=== PATIENT | female | born 1980 | race Caucasian/White ===

== ENCOUNTER 2019-03-14 21:10 | Emergency (ER) | payer MEDICAID ==
[~2019-03-14] VITALS: Ht 165.1 cm; Wt 101.3 kg
[2019-03-14 21:12] VITALS: Ht 165.1 cm; Wt 101.3 kg
--- NOTE | 2019-03-14 22:55 | ERD ---
ER Documentation Chief Complaint Chief Complaint RT buttock abscess [id number]; 31wks preg no complications HPI 31-year-old female in her 31st week presents complaint of abscess on th e buttocks for the past 3 weeks. Note that her blood pressure was elevated in the first read but we rechecked and it was down. Patient denies have any history of frequency of hypertension before . Patient states that she was just at her doctor's office yesterday and her blood pressure was fine. Denies any treatments. Denies any fevers, chills, numbness, tingling. Denies allergies. Denies medical problems. ROS All systems reviewed and are negative except as per history of present illness. Medications Home Meds Active Scripts Clindamycin Hcl* (Clindamycin Hcl*) 300 Mg Capsule, 300 MG PO QID for 6 Days, CAP Prov:NICHOLAS QUEZADA 03/14/19 Cephalexin* (Keflex*) 500 Mg Capsule, 500 MG PO BID for 7 Days, CAP Prov:NICHOLAS QUEZADA 03/14/19 Allergies Allergies: Coded Allergies: No Known Allergy (Unverified , 03/14/19) PMhx/Soc History of Surgery: No Anesthesia Reaction: No Hx Neurological Disorder: No Hx Respiratory Disorders: No Hx Cardiac Disorders: No Hx Psychiatric Problems: No Hx Miscellaneous Medical Probl: No Hx Alcohol Use: No Hx Substance Use: No Hx Tobacco Use: No Smoking Status: Never smoker FmHx Family History: No diabetes, No coronary disease, No other Physical Exam Vitals Vital Signs Date Temp Pulse Resp B/P (MAP) Pulse Ox O2 O2 Flow FiO2 Time Delivery Rate 03/14/19 101 20 117/75 Room Air 22:58 (89) 03/14/19 98.8 104 20 162/77 97 21:12 (105) Physical Exam Const: No acute distress Head: Atraumatic Eyes: Normal Conjunctiva ENT: Normal External Ears, Nose and Mouth. Neck: Full range of motion. No meningismus. Resp: Clear to auscultation bilaterally Cardio: Regular rate and rhythm, no murmurs Abd: Soft, non tender, non distended. Normal bowel sounds Skin: Approximately 5 cm erythematous mass noted on the left buttocks. No perianal masses noted. Mass is indurated and only mildly fluctuant. There is no lymphatic streaking noted. Back: No midline or flank tenderness Ext: No cyanosis, or edema Neur: Awake and alert Psych: Normal Mood and Affect Results 24 hrs Laboratory Tests Test 03/14/19 23:00 Urine Color YELLOW Urine Clarity SLIGHTLY CLOUDY Urine pH 6.0 Urine Specific [place] 1.016 Urine Ketones 1+ mg/dL Urine Nitrite NEGATIVE mg/dL Urine Bilirubin NEGATIVE mg/dL Urine Urobilinogen 2+ mg/dL Urine Leukocyte Esterase 2+ Noé/ul Urine Microscopic RBC 3 /HPF Urine Microscopic WBC 6 /HPF Urine Squamous Epithelial Cells FEW /HPF Urine Bacteria FEW /HPF Urine Hemoglobin NEGATIVE mg/dL Urine Glucose 1+ mg/dL Urine Total Protein NEGATIVE mg/dl Current Medications Medications Dose Sig/Manjula Start Time Status Last (Trade) Ordered Route PRN Stop Time Admin Dose Reason Admin Lidocaine 1 applic ONCE ONCE 03/14/19 DC 03/14/19 (Lmx 4% Plus) TOP 23:00 22:43 03/14/19 23:01 Lidocaine 20 ml ONCE ONCE 03/14/19 DC (Xylocaine SC 23:00 1% (Mdv) 20 03/14/19 23:01 ml) Clindamycin 600 mg ONCE ONCE 03/15/19 Phosphate IM 00:30 (Cleocin) 03/15/19 00:31 Procedures/MDM MDM: Skin was cleaned with Betadine solution and in addition to LMX cream patient was given lidocaine for anesthesia. Incision was made in the abscess but there is very little drainage. Patient tolerated procedure without complications. Incision was dressed. Since there was no drainage there was no need for packing. Patient was started on 600 mg IM clindamycin and discharged with Rx for clindamycin for the abscess with cellulitis due to her not been able to take Bactrim. In addition patient was discharged with Rx for Keflex because of her UTI. Patient's vitals were normal and I have very low suspicion for se psis. In addition I have low suspicion for pyelonephritis, acute space infection, lymphangitis, or any other emergent condition. Patient advised to follow-up in 48 hours for wound check. Patient discharged with strict ER precautions. Patient advised to follow up with PMD. All questions answered at discharge. Departure Diagnosis: Primary Impression: Acute abscess Additional Impression: UTI (urinary tract infection) during Condition: NICHOLAS Sampson March 14, 2019 22:55
[2019-03-14 22:58] VITALS: RESP 20
[2019-03-14] MEDS ORDERED: LIDOCAINE 4% CR TOP ONE (23:00)
[2019-03-14] MEDS ORDERED: LIDOCAINE 1% (MDV) 20 ML INJ SC ONE (23:00)
[2019-03-14] MEDS ORDERED: CLIN300C10 PO (23:58)
[2019-03-14] MEDS ORDERED: CEPH-443 PO (23:58)
[2019-03-15] MEDS ORDERED: CLINDAMYCIN 600 MG INJ IM ONE (00:30)
[2019-03-15] MEDS ORDERED: CLINDAMYCIN 300 MG INJ IM ONE (01:11)
[2019-03-15 01:13] VITALS: BP 116/60; PULSE 66
== END 2019-03-15 01:14 | disposition home or self-care (01) ==
LOC: FTE 21:10
DX: L02.31 Cutaneous abscess of buttock (principal); N39.0 Urinary tract infection, site not specified
CPT/HCPCS: 10060; 81001; Z7610

== ENCOUNTER 2019-03-17 18:01 | Emergency (ER) | payer MEDICAID ==
[~2019-03-17] VITALS: Ht 162.6 cm; Wt 102.0 kg
[~2019-03-17 18:01] MED LIST: CEPH-443 PO; CLIN300C10 PO
[2019-03-17 18:04] VITALS: PULSE 88; Ht 162.6 cm; Wt 102.0 kg
[2019-03-17] MEDS ORDERED: LIDOCAINE 1% (MPF) 5 ML VIAL INFIL ONE (19:30)
--- NOTE | 2019-03-17 21:33 | ERD ---
ER Documentation Chief Complaint Chief Complaint FOR RECHECK OF ABCESS ON RT BUTTOCK , 31 WEEKS PREG HPI 38-year-old female currently 31 weeks presents for recheck of her right buttock abscess had incision and drainage here in the ER 3 days ago. She is currently taking antibiotics. She denies any fevers or chills. She states that she feels that the wound is still draining a little bit. She states that the pain is improving. Otherwise no other modifying factors noted. ROS All systems reviewed and are negative except as per history of present illness. Medications Home Meds Active Scripts Clindamycin Hcl* (Clindamycin Hcl*) 300 Mg Capsule, 300 MG PO QID for 6 Days, CAP Prov:NICHOLAS QUEZADA 03/14/19 Cephalexin* (Keflex*) 500 Mg Capsule, 500 MG PO BID for 7 Days, CAP Prov:NICHOLAS QUEZADA 03/14/19 Allergies Allergies: Coded Allergies: No Known Allergy (Unverified , 03/14/19) PMhx/Soc History of Surgery: No Anesthesia Reaction: No Hx Neurological Disorder: No Hx Respiratory Disorders: No Hx Cardiac Disorders: No Hx Psychiatric Problems: No Hx Miscellaneous Medical Probl: No Hx Alcohol Use: No Hx Substance Use: No Hx Tobacco Use: No Smoking Status: Never smoker FmHx Family History: No coronary disease Physical Exam Vitals Vital Signs Date Temp Pulse Resp B/P (MAP) Pulse Ox O2 O2 Flow FiO2 Time Delivery Rate 03/17/19 98.2 88 18 127/68 99 18:04 (87) Physical Exam Const: No acute distress Resp: Clear to auscultation bilaterally Cardio: Regular rate and rhythm, no murmurs Abd: Soft, non tender, non distended. Normal bowel sounds Skin: Right buttock abscess incision and drainage area clean dry and intact, there is still some pus drainage from the site which was expressed. Back: No midline or flank tenderness Ext: No cyanosis, or edema Neur: Awake and alert Psych: Normal Mood and Affect Results 24 hrs Current Medications Medications Dose Sig/Manjula Start Time Status Last (Trade) Ordered Route PRN Stop Time Admin Dose Reason Admin Lidocaine 5 ml ONCE ONCE 03/17/19 DC (Xylocaine INFIL 19:30 1% (Mpf)) 03/17/19 19:31 Procedures/MDM Medical Decision Making: Patient presents for recheck of incision and drainage was done for her right buttock abscess 3 days ago. There is some drainage noted over the area on examination. The pus was drained and the area was irrigated with copious amounts of normal saline. Patient advised regarding sitz bath to keep the wound open to encourage continued drainage. Advised to complete her course of antibiotics. Patient advised to follow up with PCP in 1-2 days. Patient advised to return to ED for new or worsening symptoms. Patient stable on discharge from the ED. Disclaimer: Inadvertent spelling and grammatical errors are likely due to EHR/dictation software use and do not reflect on the overall quality of patient care. Also, please note that the electronic time recorded on this note does not necessarily reflect the actual time of the patient encounter. Departure Diagnosis: Primary Impression: Wound check, abscess Condition: Fair Patient Instructions: Wound Care Referrals: [facility] YOU HAVE RECEIVED A MEDICAL SCREENING EXAM AND THE RESULTS INDICATE THAT YOU DO NOT HAVE A CONDITION THAT REQUIRES URGENT TREATMENT IN THE EMERGENCY DEPARTMENT. FURTHER EVALUATION AND TREATMENT OF YOUR CONDITION CAN WAIT UNTIL YOU ARE SEEN IN YOUR DOCTORS OFFICE WITHIN THE NEXT 1-2 DAYS. IT IS YOUR RESPONSIBILITY TO MAKE AN APPOINTMENT FOR FOLOW-UP CARE. IF YOU HAVE A PRIMARY DOCTOR --you should call your primary doctor and schedule an appointment IF YOU DO NOT HAVE A PRIMARY DOCTOR YOU CAN CALL OUR PHYSICIAN REFERRAL HOTLINE AT IF YOU CAN NOT AFFORD TO SEE A PHYSICIAN YOU CAN CHOSE FROM THE FOLLOWING [facility] [address] [facility]. [facility] [address] [facility] [facility] [address] [facility] [facility] [address] [facility]. [facility] [address] [facility]. [facility]. [address] Additional Instructions: Llame al doctor MAANA y angela luz maria MILA PARA DENTRO DE 1-2 PAINTER.Dgale a la secretaria que nosotros le instruimos hacer esta mila.Avise o llame si [place] condicin se empeora antes de la mila. Regresa aqui si peor o no mejor. DAHIANA GALVAN DO March 17, 2019 21:33
[2019-03-17 21:40] VITALS: BP 122/62; RESP 16
== END 2019-03-17 21:41 | disposition home or self-care (01) ==
LOC: FTE 18:01
DX: O99.713 Diseases of the skin and subcutaneous tissue complicating pregnancy, third trimester (principal); L02.31 Cutaneous abscess of buttock; Z3A.31 31 weeks gestation of pregnancy; Z48.01 Encounter for change or removal of surgical wound dressing
CPT/HCPCS: Z7502; Z7610; 99282

== ENCOUNTER 2019-04-02 12:14 | Outpatient (CLI) | payer MEDICAID ==
[~2019-04-02] VITALS: Ht 165.1 cm; Wt 103.5 kg
[2019-04-02 12:34] VITALS: Ht 165.1 cm; Wt 103.5 kg
[2019-04-02] MEDS ORDERED: NPH,100I5 SQ ×2 (12:34)
[2019-04-02] MEDS ORDERED: SS SC ×2 (12:34)
[2019-04-02] MEDS ORDERED: LEVO50TA7 PO (12:34)
[2019-04-02 12:35] VITALS: BP 137/76; PULSE 84; RESP 18
--- NOTE | 2019-04-02 14:49 | PN ---
Triage Information Date/Time Reason for visit: NST BPP for Hypothyroididm and Dm Weeks of Gestation 34+ /Para n/a Diabetes: gestational Diabetes management: diet controlled Hypertention: none Objective Vital Signs Date Temp Pulse Resp B/P (MAP) Pulse Ox O2 O2 Flow FiO2 Time Delivery Rate 04/02/19 97.9 84 18 137/76 Room Air 12:35 (96) Heart Rate: 140's Contractions: None Disposition: Discharge Assessment/Plan Bpp 08/01 Precautions discussed Questions answered Follow up with provider AMAYA DOWLING M.D. Apr 02, 2019 14:49
--- NOTE | 2019-04-02 15:29 | TRIAGE ---
OB Triage Datetime Report Generated by CPN: 04/02/2019 15:29 Datetime: 04/02/2019 14:42 Stage of : OB Triage Datetime: 04/02/2019 14:31 Stage of : OB Triage Datetime: 04/02/2019 14:02 Labor Evaluation Frequency: 0 Monitor Mode: External Pattern: Normal: <= 5 Contractions in 10 Minutes Resting Tone [place]: Relaxed Heart Rate FHR Baseline Rate: 135 Monitor Mode: External US Variability: Moderate 6-25 bpm Accelerations: 10X10 Decelerations: None Category: Category I Pain Assessment Pain Scale: 0 Pain Presence: None/Denies Pain Type: N/A Pain Goal: 3 Pain Relief Measures: Comfort Measures Datetime: 04/02/2019 12:54 Labor Evaluation Frequency: X1 Monitor Mode: External Duration (sec)2399: 60 Quality: Mild Pattern: Normal: <= 5 Contractions in 10 Minutes Resting Tone [place]: Relaxed Contraction Comments: DENIES FEELING Heart Rate FHR Baseline Rate: 135 Monitor Mode: External US Variability: Moderate 6-25 bpm Accelerations: 10X10 Decelerations: None Category: Category I Pain Assessment Pain Scale: 0 Pain Presence: None/Denies Pain Type: N/A Pain Goal: 3 Pain Relief Measures: Comfort Measures Datetime: 04/02/2019 12:25 Assessment Type: Triage Maternal Assessment Level of Consciousness: Keenly Alert, Responsive DTR's/Clonus: DTRs 2+; No Clonus Headache: Denies Blurred Vision: No Respiratory Effort: Unlabored; Regular Rhythm; Equal Expansion Breath Sounds, Left: Clear and Equal Breath Sounds, Right: Clear and Equal Nausea/Vomiting: Denies RUQ Epigastric Pain: Denies Lower Extremities Edema: None Degree: None Upper Extremities Edema: None Degree: None Facial Edema: None Fall Risk Assessment History of Falling: (0) No Secondary Diagnosis: (0) No Ambulatory Aid: (0) Bedrest/Nurse Assist IV Therapy: (0) No Gait: (0) Normal/Bedrest/Immobile Mental Status: (0) Oriented to Own Ability Fall Score: 0 Fall Risk Score Definition: No Risk: No action required Datetime: 04/02/2019 12:21 Time of Arrival: 04/02/2019 12:10 EGA: 34.5 Arrived By: Ambulatory Arrived From: Office Chief Complaint: pt. sent from CLINIC FOR NST/BPP FOR DM AND HYPOTHYROID Movement: Present Contractions: Denies/Absent Rupture of Membranes: Denies Vaginal Bleeding: None Patient Complaints: None Additional Patient Complaints: PT. STATES FBS 94MG/DL THIS AM Time Provider Notified: 04/02/2019 14:30 Provider Notified: HADADIAN Initial Plan: NST/BPP Datetime: 04/02/2019 12:18 Monitor Mode: External Monitor Mode: External US
== END 2019-04-02 15:10 | disposition home or self-care (01) ==
LOC: OBT 12:14 → L-D 12:14 → OBT 15:10
PROVIDERS: ATTEND Obstetrics & Gynecology
DX: O36.8330 Maternal care for abnormalities of the fetal heart rate or rhythm, third trimester, not applicable or unspecified (principal); O99.283 Endocrine, nutritional and metabolic diseases complicating pregnancy, third trimester; E03.9 Hypothyroidism, unspecified; O24.419 Gestational diabetes mellitus in pregnancy, unspecified control; O09.513 Supervision of elderly primigravida, third trimester; Z3A.34 34 weeks gestation of pregnancy
CPT/HCPCS: 76818; Z7500; G0463

== ENCOUNTER 2019-04-16 16:04 | Inpatient (IN) | payer MEDICAID ==
[~2019-04-16] VITALS: Ht 165.1 cm; Wt 107.8 kg
[~2019-04-16 16:04] MED LIST changes: -CEPH-443 PO; -CLIN300C10 PO; +LEVO50TA7 PO; +NPH,100I5 SQ; +SS SC
[2019-04-16 16:59] VITALS: Ht 165.1 cm; Wt 107.8 kg
[2019-04-16 17:00] VITALS: BP 137/76; PULSE 88; RESP 18
--- NOTE | 2019-04-16 21:41 | HP ---
Date/Time of Note Date/Time of Note DATE: 04/16/19 TIME: 21:36 OB - History Hx of Present Chief Complaint: elevated BP Estimated Due Date: May 09, 2019 : 5 Para: 4 Spontaneous : 0 Therapeutic : 0 Care: Good Care Ultrasounds: Normal mid trimester US Obstetrical Complications: None Medical Complications: Other (Type II DM, hypothyroidism) Past Family/Social History * Past Medical, Surgical, Family and Obstetric Histories reviewed from chart. OB Admission Exam Vital Signs Vital Signs Vital Signs Date Temp Pulse Resp B/P (MAP) Pulse Ox O2 O2 Flow FiO2 Time Delivery Rate 04/16/19 98.2 88 18 137/76 17:00 (96) Physical Exam HEENT: WNL Heart: Rhythm Normal Lungs: Clear, Equal Abdomen: WNL Extremities: Normal Reflexes: Normal Cervical Dilatation: None Effacement: 50% Station: -2 Membranes: Intact Heart Rate: 120's Accelerations: Accelerations Present Decelerations: No Decelerations Varibility: Moderate Last 72 hours Lab Results CBC & BMP 04/16/19 16:25 Liver Function Test 04/16/19 16:25 Alanine Aminotransferase (ALT/SGPT) 9 L Albumin 3.3 Alkaline Phosphatase 104 Aspartate Amino Transf (AST/SGOT) 17 Direct Bilirubin 0.00 Total Protein 7.1 Hemoglobin A1C Test 04/16/19 16:25 Hemoglobin A1c 7.1 H OB Assessment/Plan Reason for admission: other Other Assessment: R/O preeclampsia Plan: Other Other plan: Admit Monitor BP 24 hour urine collection ANGELIKA JACKSON MD Apr 16, 2019 21:41
[2019-04-16] MEDS ORDERED: ACETAMINOPHEN 325 MG TAB PO PRN (22:30)
[2019-04-16] MEDS ORDERED: ONDANSETRON 4 MG INJ IV PRN (22:30)
[2019-04-16] MEDS ORDERED: NACL 0.9% 3 ML SYG IV SCH (22:30)
--- NOTE | 2019-04-16 23:34 | TRIAGE ---
OB Triage Datetime Report Generated by CPN: 04/16/2019 23:33 Datetime: 04/16/2019 22:25 Labor Evaluation Frequency: NONE Monitor Mode: External Resting Tone [place]: Relaxed Heart Rate FHR Baseline Rate: 140 Monitor Mode: External US Variability: Moderate 6-25 bpm Accelerations: 15X15 Decelerations: None Category: Category I Datetime: 04/16/2019 22:00 Labor Evaluation Frequency: NONE Monitor Mode: External Resting Tone [place]: Relaxed Heart Rate FHR Baseline Rate: 145 Monitor Mode: External US Variability: Moderate 6-25 bpm Accelerations: 15X15 Decelerations: None Category: Category I Datetime: 04/16/2019 21:28 Vaginal Exam Dilatation (cms): 0.0 Effacement (%): 0 Station: -3 Exam By: Dr. Delshad Datetime: 04/16/2019 21:00 Labor Evaluation Frequency: x4 Monitor Mode: External Duration (sec)2399: 50-90 Quality: Mild Pattern: Normal: <= 5 Contractions in 10 Minutes Resting Tone [place]: Relaxed Heart Rate FHR Baseline Rate: 150 Monitor Mode: External US Variability: Moderate 6-25 bpm Accelerations: Prolonged Decelerations: None Category: Category I Datetime: 04/16/2019 20:32 Pain Assessment Pain Scale: 4 Pain Presence: Intermittent Pain Type: Cramping Pain Location: Abdomen Datetime: 04/16/2019 20:00 Labor Evaluation Frequency: 4-9 Monitor Mode: External Duration (sec)2399: 50-150 Quality: Mild Pattern: Normal: <= 5 Contractions in 10 Minutes Resting Tone [place]: Relaxed Heart Rate FHR Baseline Rate: 140 Monitor Mode: External US Variability: Moderate 6-25 bpm Accelerations: 15X15 Decelerations: None Category: Category I Datetime: 04/16/2019 17:50 Labor Evaluation Frequency: 7-8 Monitor Mode: External Duration (sec)2399: 40-60 Pattern: Normal: <= 5 Contractions in 10 Minutes Resting Tone [place]: Relaxed Heart Rate FHR Baseline Rate: 135 Monitor Mode: External US Variability: Moderate 6-25 bpm Accelerations: 10X10 Decelerations: None Category: Category I Pain Assessment Pain Scale: 0 Pain Presence: None/Denies Pain Type: N/A Pain Goal: 3 Pain Relief Measures: Comfort Measures Datetime: 04/16/2019 17:15 Stage of : OB Triage Datetime: 04/16/2019 16:54 Stage of : OB Triage Assessment Type: Triage Maternal Assessment Level of Consciousness: Keenly Alert, Responsive DTR's/Clonus: DTRs 2+; No Clonus Headache: Denies Blurred Vision: No Respiratory Effort: Unlabored; Regular Rhythm; Equal Expansion Breath Sounds, Left: Clear and Equal Breath Sounds, Right: Clear and Equal Nausea/Vomiting: Denies RUQ Epigastric Pain: Denies Facial Edema: None Temperature Route: Axillary Fall Risk Assessment History of Falling: (0) No Secondary Diagnosis: (0) No Ambulatory Aid: (0) Bedrest/Nurse Assist IV Therapy: (0) No Gait: (0) Normal/Bedrest/Immobile Mental Status: (0) Oriented to Own Ability Fall Score: 0 Fall Risk Score Definition: No Risk: No action required Labor Evaluation Frequency: X1 Monitor Mode: External Duration (sec)2399: 50 Quality: Mild Pattern: Normal: <= 5 Contractions in 10 Minutes Resting Tone [place]: Relaxed Heart Rate FHR Baseline Rate: 145 Monitor Mode: External US Variability: Moderate 6-25 bpm Decelerations: None Pain Assessment Pain Scale: 0 Pain Presence: None/Denies Pain Type: N/A Pain Goal: 3 Pain Relief Measures: Comfort Measures Datetime: 04/16/2019 16:52 Time of Arrival: 04/16/2019 15:52 EGA: 36.5 Arrived By: Ambulatory Arrived From: Office Chief Complaint: REFERRED FROM DR OFFICE FOR POSS PIH, DENIES LEAKING OR BLEEDING, HAS PERINEAL OK ESSURE CONSTANTLY Movement: Present Contractions: Denies/Absent Rupture of Membranes: Denies Vaginal Bleeding: None Vaginal Discharge: Denies Recent Sexual Intercouse: Yes Abdominal Trauma: Not Applicable Patient Complaints: Cramping Time Provider Notified: 04/16/2019 17:15 Provider Notified: Dr. Rodriguez Initial Plan: MONITOR, BPP, CBC, CMP, URIC ACID, HBA1C, FREE T4, TSH Datetime: 04/12/2019 11:31 Vaginal Bleeding: None Vaginal Discharge: Denies Recent Sexual Intercouse: Denies Datetime: 04/02/2019 12:25 Fall Score: 0 Fall Risk Score Definition: No Risk: No action required Datetime: 04/02/2019 12:21 EGA: 34.5
[2019-04-17] MEDS ORDERED: GLUCOSE GEL 15 GRAM TUBE BUCCAL PRN (01:00)
[2019-04-17] MEDS ORDERED: DEXTROSE 50% 50 ML SYRINGE IV PRN ×2 (01:00)
[2019-04-17] MEDS ORDERED: GLUCOSE GEL 15 GRAM TUBE PO PRN ×2 (01:00)
[2019-04-17] MEDS ORDERED: GLUCAGON 1 MG INJ IM PRN (01:00)
[2019-04-17] MEDS: NPH, HUMAN INSULIN ISOPHANE 3ML VIAL SC SCH ×2 (01:31→21:00)
[2019-04-17] MEDS: metFORMIN 500 MG TAB PO SCH ×2 (01:33→21:00)
[2019-04-17] MEDS ORDERED: OXYTOCIN 30 UNITS/LR 500 ML BAG IV ONE (07:00)
[2019-04-17] MEDS ORDERED: LEVOTHYROXINE 50 MCG TAB PO SCH (07:00)
[2019-04-17] MEDS: ACCU-CHEK XX SCH ×4 (07:59→19:35)
[2019-04-17] MEDS ORDERED: NPH, HUMAN INSULIN ISOPHANE 3ML VIAL SC SCH (08:05)
[2019-04-17] MEDS ORDERED: INSULIN ASPART [NOVOLOG] 3 ML PEN SC SCH ×2 (08:05→18:05)
[2019-04-17] MEDS ORDERED: PRENATAL VITAMIN PO SCH (09:00)
[2019-04-17] MEDS: DOCUSATE SODIUM 100 MG CAP PO SCH ×2 (09:53→21:00)
[2019-04-17] MEDS ORDERED: INSULIN LISPRO 100 UNIT/ML VIAL SC SCH (11:50)
[2019-04-17] MEDS: LACTATED RINGER'S 1,000 ML IV SCH ×2 (12:18→20:06)
[2019-04-17] MEDS ORDERED: OXYTOCIN 30 UNITS/LR 500 ML IV PRN (12:30)
[2019-04-17] MEDS ORDERED: CARBOPROST 250 MCG INJ IM PRN (12:30)
[2019-04-17] MEDS ORDERED: MISOPROSTOL 200 MCG TAB PR PRN (12:30)
[2019-04-17] MEDS ORDERED: OXYTOCIN 30 UNITS/LR 500 ML IV SCH (12:30)
[2019-04-17] MEDS ORDERED: CEFAZOLIN 2 GM/50 ML (PMX) 50 ML IVPB SCH (12:30)
[2019-04-17] MEDS ORDERED: METHYLERGONOVINE 0.2 MG INJ IM PRN (12:30)
--- NOTE | 2019-04-17 14:34 | PN ---
Date/Time of Note Date/Time of Note DATE: 04/17/19 TIME: 14:19 OB Subjective Subjective Subjective Patient seen and examined. She states good movement. She is complaining of pain on mid and right upper abdomen. She denies nausea, vomiting, shortness of breath, chest pain, headache, visual changes, vaginal bleeding or LOF. OB Objective Objective Objective General: Patient appears well, alert and oriented, NAD, appropriate mood and affect ABD: gravid, soft, non-tender. Back: No CVA tenderness (B/L) LE: Severe edema. No clubbing, cyanosis, edema, thigh or calf tenderness bilaterally FHT: 135 bpm , moderate variability with acceleration, no deceleration-category I Contractions:None OB Assessment/Plan Other plan: 38 year-old G 5 para 3-1-0-3 with gestational hypertension, pre-gestational diabetes on insulin, hypothyroidism, history of demise at 26 weeks, previous delivery with one at 26 weeks admitted since last night for elevated blood pressure. She is complaining of mid and right upper abdominal pain. She gained 10 pounds in 1 week. Induction of labor versus repeat delivery discussed in detail with patient. She would like to have a repeat delivery and bilateral tubal ligation. FHR: Reassuring. No sign of metabolic acidosis- Category I. Continuous EFM, toco. The risk of delivery including but not limited to bleeding, infection, injury to other organs (bowel, bladder, ureter, vessels, nerves), injury to fetus, blood transfusion, blood transfusion related infection, risk of anesthesia, adhesion, needs for future , removal of uterus or any other indicated surgery, surgical sterilization, increased risk of ectopic if failure of procedure occurs discussed with the patient and her family. She expressed understanding. All of her questions were answered. She signed the informed consent. PHYSICIAN'S VERIFICATION OF INFORMED CONSENT The patient was counseled regarding the procedure, its indications, risks, potential complications and alternatives and any questions were answered. Consent was obtained. PLANNED PROCEDURE/TREATMENT: delivery with possible using vacuum/forceps, bilateral tubal ligation and any other indicated surgery PHYSICIAN'S VERIFICATION OF INFORMED CONSENT FOR BLOOD TRANSFUSION: There is a reasonable possibility that blood transfusion will be necessary as a result of the patient's procedure. I have discussed the following with the patient/patient's legal inside technical sales representative: An explanation of the benefits and risks of the transfusion of blood or blood products and the possible alternatives. All questions have been answered to the patient's satisfaction. INFORMED CONSENT:The patient has been informed of: The nature of the proposed care, treatment, services, medications, interventions or procedures. Potential benefits, risks or side effects, including potential problems related to recuperation. The likelihood of achieving care treatment and service goals. Reasonable alternatives to the proposed care, treatment and service. The relevant risks, benefits and side effects related to alternatives, includ ing the possible results of not receiving care, treatment and services. When indicated, any limitations on the confidentiality of information learned from or about the patient. If appropriate, the risks, benefits and alternatives of the drugs to be used for sedation/analgesia including moderate sedation. If appropriate, patient has been provided information on the risks, benefits and alternatives to the transfusion of blood and/or blood products. If appropriate, patient has been provided information regarding the [place] Blood Act. LAUREN RANDOLPH Apr 17, 2019 14:34
[2019-04-17] MEDS ORDERED: PHENYLephrine (100 MCG/ML) 10ML SYG ONE (19:36)
[2019-04-17] MEDS ORDERED: morphine SULFATE/PF (10 MG/10 ML) INJ ONE (19:36)
[2019-04-17] MEDS ORDERED: OXYTOCIN 10 UNIT INJ ONE (19:36)
--- NOTE | 2019-04-17 19:40 | PREAC ---
Date/Time of Note Date/Time of Note DATE: 04/17/19 TIME: 19:37 Anesthesia Eval and Record Evaluation Time Pre-Procedure Interview DATE: 04/17/19 TIME: 19:37 Age 38 Sex female NPO: 8 hrs Preoperative diagnosis Repeat Planned procedure Past Medical History Past Medical History: Includes Cardio: HTN Endo: Diabetes, Hypothyroid GI: Obesity Heme: Anemia : : (5), Para: (4), Gestational age: (36) Surgery & Anesthesia Issues No known issue Meds Anticoagulation: No Beta Krunal within 24 hr: No Reason Beta Krunal not given: Pt. not on B-Krunal Reported Medications Levothyroxine Sodium* (Levothyroxine Sodium*) 50 Mcg Tablet, 50 MCG PO BEFORE BREAKFAST, #30 TAB 04/02/19 Insulin Human Regular (Novolin-R U-100) 100 Unit/Ml Soln, 10 UNITS SC AC BREAKFAST, EA 04/02/19 Insulin Human Regular (Novolin-R U-100) 100 Unit/Ml Soln, 6 UNITS SC AC DINNER, EA 04/02/19 NPH, Human Insulin Isophane (Humulin N Kwikpen) 100 Unit/1 Ml Insuln.pen, 14 UNIT SQ QHS, EA 04/02/19 NPH, Human Insulin Isophane (Humulin N Kwikpen) 100 Unit/1 Ml Insuln.pen, 15 UNIT SQ AC BREAKFAST, EA 04/02/19 Current Medications IV Flush (NS 3 ml) 3 ml PER PROTOCOL IV ; Start 04/16/19 at 22:30 Prenat Multivit/ [place]/Iron/Folic Ac () 1 tab DAILY PO Last administered on 04/17/19at 09:53; Admin Dose 1 TAB; Start 04/17/19 at 09:00 Docusate Sodium (Colace) 100 mg BID PO Last administered on 04/17/19at 09:53; Admin Dose 100 MG; Start 04/17/19 at 09:00 Acetaminophen (Tylenol Tab) 650 mg Q4H PRN PO .PAIN OR TEMP; Start 04/16/19 at 22:30 Ondansetron HCl (Zofran Inj) 4 mg Q6H PRN IV NAUSEA/VOMITING; Start 04/16/19 at 22:30 Insulin Aspart (Novolog Insulin Pen) 10 unit WITH BREAKFAST SC Last administered on 04/17/19at 09:52; Admin Dose 10 UNIT; Start 04/17/19 at 08:05 Insulin Human NPH (Humulin N) 15 unit WITH BREAKFAST SC Last administered on 04/17/19at 09:52; Admin Dose 15 UNIT; Start 04/17/19 at 08:05 Metformin HCl (Glucophage) 1,000 mg HS PO Last administered on 04/17/19at 01:33; Admin Dose 1,000 MG; Start 04/17/19 at 01:00 Insulin Human NPH (Humulin N) 14 unit HS SC Last administered on 04/17/19at 01:31; Admin Dose 14 UNIT; Start 04/17/19 at 01:00 Levothyroxine Sodium (Synthroid) 50 mcg BEFORE BREAKFAST PO Last administered on 04/17/19at 06:23; Admin Dose 50 MCG; Start 04/17/19 at 07:00 Metformin HCl (Glucophage) 1,000 mg WITH BREAKFAST PO ; Start 04/18/19 at 07:35 Insulin Aspart (Novolog Insulin Pen) 6 unit WITH DINNER SC ; Start 04/17/19 at 18:05 Miscellaneous Information 1 ea NOTE XX ; Start 04/17/19 at 01:00 Glucose (Glutose) 15 gm Q15M PRN PO DECREASED GLUCOSE; Start 04/17/19 at 01:00 Glucose (Glutose) 22.5 gm Q15M PRN PO DECREASED GLUCOSE; Start 04/17/19 at 01:00 Dextrose (D50w Syringe) 25 ml Q15M PRN IV DECREASED GLUCOSE; Start 04/17/19 at 01:00 Dextrose (D50w Syringe) 50 ml Q15M PRN IV DECREASED GLUCOSE; Start 04/17/19 at 01:00 Glucagon (Glucagen) 1 mg Q15M PRN IM DECREASED GLUCOSE; Start 04/17/19 at 01:00 Glucose (Glutose) 15 gm Q15M PRN BUCCAL DECREASED GLUCOSE; Start 04/17/19 at 01:00 Diagnostic Test (Pha) (Accu-Chek) 1 ea FBSPP XX Last administered on 04/17/19at 14:56; Admin Dose 1 EA; Start 04/17/19 at 07:30 IV Flush (NS 10 ml) 10 ml Q8 IV Last administered on 04/17/19at 05:56; Admin Dose 10 ML; Start 04/17/19 at 06:00 Lactated Ringer's 1,000 ml @ 125 mls/hr Q8H IV Last administered on 04/17/19at 12:18; Admin Dose 125 MLS/HR; Start 04/17/19 at 12:06 Cefazolin Sodium/ Dextrose 50 ml @ 100 mls/hr ONCE IVPB ; Start 04/17/19 at 12:30 Oxytocin/Lactated Ringer's 500 ml @ 125 mls/hr POST IV ; Start 04/17/19 at 12:30 Oxytocin/Lactated Ringer's 500 ml @ 0 mls/hr ONCE PRN IV .VAGINAL BLEEDING; Start 04/17/19 at 12:30 Methylergonovine Maleate (Methergine) 0.2 mg ONCE PRN IM .VAGINAL BLEEDING; Start 04/17/19 at 12:30 Carboprost Tromethamine (Hemabate) 250 mcg ONCE PRN IM .VAGINAL BLEEDING; Start 04/17/19 at 12:30 Misoprostol (Cytotec) 1,000 mcg ONCE PRN MN .VAGINAL BLEEDING; Start 04/17/19 at 12:30 Meds reviewed: Yes Allergies Coded Allergies: No Known Allergy (Unverified , 03/14/19) Allergies Reviewed: Yes Labs/Studies Labs Reviewed: Reviewed by anesthesiologist Result Diagram: 04/17/1971804/17/1919 Laboratory Tests 04/17/19 07:19 Blood Bank Test 04/17/19 07:19 Antibody Screen NEGATIVE Blood Type A POSITIVE test: Positive Studies: ECG (n/a), CXR (n/a) Pre-procedure Exam Last vitals Vital Signs Date Temp Pulse Resp B/P (MAP) Pulse Ox O2 O2 Flow FiO2 Time Delivery Rate 04/16/19 98.2 88 18 137/76 17:00 (96) Airway: Adequate mouth opening, Adequate thyromental dist Mallampati: Mallampati II Teeth: Normal Lung: Normal Heart: Normal ASA Physical Status ASA physical status: 3 Emergency: None Planned Anesthetic Neuraxial: Spinal Planned Pain Management Sub-arachniod narcotics, Parenteral pain med Pre-operative Attestations Prior to commencing anesthesia and surgery, the patient was re-evaluated, there was verification of: *The patient's identity *The results of appropriate recent lab work and preoperative vital signs *The above evaluation not changing prior to induction *Anesthetic plan, risk benefits, alternative and complications discussed with patient/family; questions answered; patient/family understands, accepts and wishes to proceed. EMERALD BIGGS MD Apr 17, 2019 19:40
[2019-04-17] MEDS ORDERED: DEXAMETHASONE 4 MG/ML 1 ML INJ ONE (19:47)
[2019-04-17] MEDS ORDERED: METOCLOPRAMIDE 10 MG INJ ONE (19:47)
[2019-04-17] MEDS ORDERED: KETOROLAC 30 MG INJ ONE (19:48)
[2019-04-17] MEDS ORDERED: HYDROmorphONE 0.5 MG/0.5 ML SYG IV PRN ×2 (20:00)
[2019-04-17] MEDS ORDERED: DIPHENHYDRAMINE 50 MG INJ IV PRN (20:00)
[2019-04-17] MEDS ORDERED: HYDROCODONE/APAP (5/325) TAB PO PRN (20:00)
[2019-04-17] MEDS ORDERED: NALBUPHINE HCL (10 MG/1 ML) INJ IV PRN (20:00)
[2019-04-17] MEDS ORDERED: ACETAMINOPHEN 500 MG TAB PO PRN (20:00)
[2019-04-17] MEDS ORDERED: morphine 2 MG INJ IV PRN ×2 (20:00)
[2019-04-17] MEDS ORDERED: NALOXONE (0.4 MG/ML) INJ IV PRN (20:00)
[2019-04-17] MEDS ORDERED: KETOROLAC 30 MG INJ IV PRN (20:00)
--- NOTE | 2019-04-17 21:07 | PAC ---
Date/Time of Note Date/Time of Note DATE: 04/17/19 TIME: 21:06 Post-Anesthesia Notes Post-Anesthesia Note Last documented vital signs Vital Signs Date Temp Pulse Resp B/P (MAP) Pulse Ox O2 O2 Flow FiO2 Time Delivery Rate 04/16/19 98.2 88 18 137/76 98 21:08 (96) Activity: WNL Respiratory function: WNL Cardiovascular function: WNL Mental status: Baseline Pain reasonably controlled: Yes Hydration appropriate: Yes Nausea/Vomiting absent: Yes EMERALD BIGGS MD Apr 17, 2019 21:07
--- NOTE | 2019-04-17 21:23 | OPR ---
Operative Report Planned Procedure Procedure date Apr 17, 2019 Procedure(s) 1. Repeat low transverse delivery 2. Removal of right paratubal cyst 3. Lysis of adhesion Performed by see signature line Tin Recovery Worker: RIANA VALENTIN MD Anesthesiologist: EMERALD BIGGS MD Pre-procedure diagnosis 38 year-old G 5 para 3-1-0-3 with preeclampsia with severe features, pre- gestational diabetes on insulin, hypothyroidism, history of demise at 26 wks and previous delivery [id number] Anesthesia Type: [id number] spinal Post-Procedure Post-procedure diagnosis 38 year-old G 5 para 3-1-0-3 with preeclampsia with severe features, pre- gestational diabetes on insulin, hypothyroidism, history of demise at 26 wks and previous delivery Findings 1. Normal uterus, fallopian tubes and ovaries 2. Viable female in cephalic presentation. 8 at one minute and 9 in 5 minutes. Weight: 8 pounds 12 ounces. Time of delivery: 20:07 3. Placenta with three vessel cord 4. Amniotic fluid - Clear Estimated Blood Loss: 600 - 700 mls Specimen(s) none Grafts/Implant(s) none Complication(s) none Pt Condition post procedure: stable Disposition: PACU Procedure Description INDICATION AND HISTORY: A 38 year-old G 5 para 3-1-0-3 with preeclampsia with severe features, pre- gestational diabetes on insulin, hypothyroidism, history of demise at 26 wks and previous delivery. The risk of delivery including but not limited to bleeding, infection, injury to other organs (bowel, bladder, ureter, vessels, nerves), injury to fetus, blood transfusion, blood transfusion related infection, risk of anesthesia, adhesion, needs for future , removal of uterus or any other indicated surgery was discussed with the patient and her family. She expressed understanding. All of her questions were answered. She signed the informed consent. DESCRIPTION OF OPERATION: The patient was taken to the operating room, where she was identified and the procedure was verified. The patient received two gram of Ancef 30 minutes prior to surgery. Spinal anesthesia was placed. The patient placed in the dorsal supine position with a left tilt. The heart rate was 135 bpm. The patient was then prepped and draped in the normal sterile fashion. A Pfannenstiel skin incision was made and carried down to the fascia with Bovie. The fascia was incised in the midline and the fascial incision was carried laterally with Dye scissors. The superior portion of the fascial incision was then grasped with Naya clamps and tented up and dissected off the underlying rectus muscle with sharp dissection. The lower portion of the fascial incision was then made in a similar fashion. The rectus muscle was and the peritoneum was entered. The peritoneal incision was then stretched and an Omar retractor was inserted. Then, an incision was made in the lower uterine segment in a transverse fashion with a knife and extended bluntly. The was delivered atraumatically in cephalic presentation with the above findings. The umbilical cord was clamped and cut. The neonatology resuscitation team was present and the baby was handed to them. A cord blood sample was obtained for further evaluation. The placenta and membrane, which appeared normal were Remov ed. The uterus was exteriorized and cleared of all clot and debris. The uterus was then closed in a two layer fashion with 0-Monocryl. At the time of closure, hemostasis was noted. There was a 1 x 2 cm right paratubal cyst, the pedicle was clamped, cauterized and cut. There was adhesion between the parietal peritoneum and uterus at the right side which clamped, cut and suture-ligated. Then peritoneum was reapproximated with 3-0 Vicryl. The muscle was reapproximated with 3-0 Vicryl. The fascia was approximated with 0-Vicryl in a running fashion. The subcutaneous tissue was re approximated with 3-0 Vicryl. The skin was closed with 4-0 Monocryl. All instruments, sponges and needle counts were correct x3. The patient tolerated the procedure well. She transferred to the recovery room in stable condition. LAUREN RANDOLPH Apr 17, 2019 21:22
[2019-04-17] MEDS: ONDANSETRON 4 MG INJ IV PRN (21:29)
[2019-04-17] MEDS ORDERED: DIPHENHYDRAMINE 50 MG INJ IM STA (22:32)
[2019-04-17] MEDS: METOCLOPRAMIDE 10 MG INJ IV SCH (22:50)
[2019-04-17] MEDS ORDERED: DIPHENHYDRAMINE 50 MG INJ IV STA (22:50)
[2019-04-18 00:30] VITALS: BP 139/78; PULSE 74; RESP 19
[2019-04-18] MEDS ORDERED: DEXTROSE 5%-LR 1,000 ML IV SCH (00:32)
[2019-04-18] MEDS ORDERED: METHYLERGONOVINE 0.2 MG TAB PO PRN (01:00)
[2019-04-18] MEDS ORDERED: MAGNESIUM HYDROXIDE 30ML CUP PO PRN (01:00)
[2019-04-18] MEDS ORDERED: LANOLIN HPA 1 PKT TOP PRN (01:00)
[2019-04-18] MEDS ORDERED: OXYTOCIN 30 UNITS/LR 500 ML IV PRN (01:00)
[2019-04-18] MEDS ORDERED: CARBOPROST 250 MCG INJ IM PRN (01:00)
[2019-04-18] MEDS ORDERED: MISOPROSTOL 200 MCG TAB PR PRN (01:00)
[2019-04-18] MEDS: OXYTOCIN 30 UNITS/LR 500 ML IV SCH ×2 (01:11→09:14)
[2019-04-18] MEDS: ONDANSETRON 4 MG INJ IV PRN (03:34)
[2019-04-18 03:40] VITALS: BP 146/85; PULSE 104; RESP 19
[2019-04-18] MEDS: LEVOTHYROXINE 50 MCG TAB GTB SCH ×3 (05:55→09:06)
[2019-04-18] MEDS ORDERED: metFORMIN 500 MG TAB PO SCH (07:35)
[2019-04-18 08:00] VITALS: BP 133/79; PULSE 85; RESP 18
[2019-04-18] MEDS: METOCLOPRAMIDE 10 MG INJ IV SCH ×2 (09:02→14:00)
[2019-04-18] MEDS: SENNA/DOCUSATE NA (8.6MG/50MG) TAB PO SCH ×2 (09:05→20:40)
[2019-04-18] MEDS: metFORMIN (XR) 500 MG TAB PO SCH ×2 (09:05→20:48)
[2019-04-18] MEDS: LABETALOL 200 MG TAB PO SCH ×2 (09:06→20:40)
[2019-04-18] MEDS ORDERED: DIPHTH/TET/ACEL PERTUSS (ADULT) 0.5 ML VIAL IM* ONE (11:00)
[2019-04-18 12:00] VITALS: BP 135/69; PULSE 83; RESP 18
[2019-04-18] MEDS ORDERED: LACTATED RINGER'S 1,000 ML IV ONE (15:30)
[2019-04-18 16:10] VITALS: BP 114/63; PULSE 90; RESP 17
--- NOTE | 2019-04-18 16:21 | PN ---
Date/Time of Note Date/Time of Note DATE: 04/18/19 TIME: 16:17 OB Subjective Subjective Subjective Denies any complaints. Had some nausea and vomiting controlled using Reglan. Reports decreased vaginal bleeding. Has not been out of the bed yet. Breast- feeding. Has not passed flatus yet. Has a still Cali catheter Has any headache, blurred vision, epigastric pain or right upper quadrant pain. OB Objective Objective Objective General appearance: Alert and oriented x4 does not appear to be in any acute distress Abdomen: Soft, fundus with appropriate tenderness and palpable below the umbilicus Incision: Clean dry and intact Lungs: Clear to auscultation bilaterally CV: RRR Extremities: No calf tenderness, no click no edema Cali draining clear yellow urine VS - Last 72 Hours, by Label Date Temp Pulse Resp B/P (MAP) Pulse Ox O2 O2 Flow FiO2 Time Delivery Rate 04/18/19 97.8 90 17 114/63 Room Air 16:10 (80) 04/18/19 97.1 83 18 135/69 Room Air 12:00 (91) 04/18/19 98.5 85 18 133/79 Room Air 08:00 (97) 04/18/19 97.8 104 19 146/85 97 Room Air 03:40 (105) 04/18/19 98.1 74 19 139/78 96 Room Air 00:30 (98) 04/16/19 98.2 88 18 137/76 17:00 (96) Laboratory Tests Test 04/17/19 17:43 04/18/19 06:46 04/18/19 08:12 04/18/19 13:11 Bedside Glucose 95 149 177 White Blood Count 14.4 #H Red Blood Count 3.59 L Hemoglobin 9.8 L Hematocrit 30.8 L Mean Corpuscular 85.8 Volume Mean Corpuscular 27.3 L Hemoglobin Mean Corpuscular 31.8 L Hemoglobin Concent Red Cell 14.1 Distribution Width Platelet Count 238 Mean Platelet Volume 12.1 H Immature 0.800 H Granulocytes % Neutrophils % 86.7 H Lymphocytes % 7.2 L Monocytes % 5.1 Eosinophils % 0.0 Basophils % 0.2 Nucleated Red Blood 0.0 Cells % Immature 0.110 H Granulocytes # Neutrophils # 12.4 H Lymphocytes # 1.0 Monocytes # 0.7 Eosinophils # 0.0 Basophils # 0.0 Nucleated Red Blood 0.0 Cells # OB Assessment/Plan Other Assessment: Postoperative day #1 Status post section Pre-gestational diabetes, controlled Anemia, postop, asymptomatic Superimposed preeclampsia, well controlled with p.o. medication. Asymptomatic Continue before meals and nightly blood sugars Routine postop care JOSHUA Cali after 24 hours Ambulating Advance diet when tolerates p.o. RIANA VALENTIN MD Apr 18, 2019 16:21
[2019-04-18] MEDS ORDERED: HYDROCODONE/APAP (5/325) TAB NGT PRN (19:45)
[2019-04-18 20:15] VITALS: BP 142/76; PULSE 88; RESP 19
[2019-04-18] MEDS: CELECOXIB 200 MG CAP PO SCH (20:40)
[2019-04-18] MEDS: IBUPROFEN 800 MG TAB PO SCH (22:06)
[2019-04-18] MEDS: HYDROCODONE/APAP (5/325) TAB PO SCH (22:06)
[2019-04-19 03:30] VITALS: BP 133/73; PULSE 76; RESP 19
[2019-04-19] MEDS: IBUPROFEN 800 MG TAB PO SCH ×3 (05:32→21:53)
[2019-04-19] MEDS: HYDROCODONE/APAP (5/325) TAB PO SCH ×3 (05:32→21:53)
[2019-04-19] MEDS: LEVOTHYROXINE 50 MCG TAB GTB SCH (05:33)
[2019-04-19] MEDS: ACCU-CHEK XX SCH ×3 (06:00→21:56)
[2019-04-19 08:30] VITALS: BP 132/65; PULSE 75; RESP 18
[2019-04-19] MEDS: CELECOXIB 200 MG CAP PO SCH ×2 (08:46→21:18)
[2019-04-19] MEDS: LABETALOL 200 MG TAB PO SCH ×2 (08:46→21:18)
[2019-04-19] MEDS: metFORMIN (XR) 500 MG TAB PO SCH ×2 (08:46→21:21)
[2019-04-19] MEDS: SENNA/DOCUSATE NA (8.6MG/50MG) TAB PO SCH ×2 (08:46→21:18)
[2019-04-19] MEDS ORDERED: INSULIN REGULAR, HUMAN 100 UNIT/1 ML 3ML VIAL SC ONE ×2 (12:00→22:00)
--- NOTE | 2019-04-19 12:25 | QN ---
Documentation Comment passing flatus still have bond catheter not ambulating yet vss afebrile abdomen sort wound dry calf neg lochia min pp bs 199 - 4IU RI A s/p c/s #2 P FBS and PP BS 2hr as ordered JOYCE HOPKINS MD Apr 19, 2019 12:25
[2019-04-19 16:30] VITALS: BP 144/85; PULSE 80; RESP 18
[2019-04-19 20:00] VITALS: BP 152/73; PULSE 86; RESP 18
[2019-04-20 03:45] VITALS: BP 151/78; PULSE 78; RESP 19
[2019-04-20] MEDS: LEVOTHYROXINE 50 MCG TAB GTB SCH (05:53)
[2019-04-20] MEDS: IBUPROFEN 800 MG TAB PO SCH ×3 (05:53→23:01)
[2019-04-20] MEDS: HYDROCODONE/APAP (5/325) TAB PO SCH ×3 (05:53→22:00)
[2019-04-20 08:15] VITALS: BP 154/77; PULSE 63; RESP 20
[2019-04-20] MEDS: ACCU-CHEK XX SCH ×4 (08:34→21:00)
[2019-04-20] MEDS: metFORMIN (XR) 500 MG TAB PO SCH ×2 (08:36→21:03)
[2019-04-20] MEDS: CELECOXIB 200 MG CAP PO SCH ×2 (08:36→21:03)
[2019-04-20] MEDS: LABETALOL 200 MG TAB PO SCH ×3 (08:37→23:03)
[2019-04-20] MEDS: SENNA/DOCUSATE NA (8.6MG/50MG) TAB PO SCH ×2 (08:38→21:03)
[2019-04-20] MEDS ORDERED: DIPHTH/TET/ACEL PERTUSS (ADULT) 0.5 ML VIAL IM* ONE (09:00)
[2019-04-20] MEDS ORDERED: MEASLES,MUMPS,RUBELLA VACCINE INJ SC* ONE (09:00)
[2019-04-20 11:32] VITALS: BP 142/82; PULSE 72; RESP 20
[2019-04-20] MEDS: FERROUS SULFATE (EC) 325 MG TAB PO SCH ×2 (13:58→23:01)
--- NOTE | 2019-04-20 16:04 | PN ---
Date/Time of Note Date/Time of Note DATE: 04/20/19 TIME: 15:59 OB Subjective Subjective Subjective POD#3 Patient is doing well. She denies nausea, vomiting, shortness of breath, chest pain, headache. She has been ambulating without difficulty, tolerating regular diet. Pain is well controlled on current medications OB Objective Objective Objective Vital Signs Date Temp Pulse Resp B/P (MAP) Pulse Ox O2 O2 Flow FiO2 Time Delivery Rate 04/20/19 97.9 72 20 142/82 Room Air 11:32 (102) 04/18/19 96 20:15 General: AAO X 3, comfortable, NAD, appropriate mood and affect. ABD: +BS. Soft, non-tender. Uterus 2 cm below umbilicus Incision: Clear, dry, intact. No erythema, drainage or induration. Flank: No CVA tenderness (B/L) LE: Mild edema. No clubbing, cyanosis, thigh or calf tenderness (B/L). Homans 'sign is negative OB Assessment/Plan Other plan: 38 year-old G 5 para 4-1-0-4 with preeclampsia, pre-gestational diabetes, hypothyroidism s/p repeat delivery POD#3 - AF, VSS - Contraception methods with R/B/A/FR discussed - Continue care - Possible discharge home tomorrow - Rx and instruction given - Follow up in one and 6 weeks 2. Preeclampsia: She is currently on labetalol 200 mg every 12 hours, increased to 200 mg every 8 hours 3. Pre-gestational diabetes: She was on metformin 1000 mg twice daily and insulin during . Currently is on metformin 500 mg twice daily. Continue checking blood glucose before meals and nightly 4. Hypothyroidism: She is on levothyroxine LAUREN RANDOLPH Apr 20, 2019 16:04
[2019-04-20 16:11] VITALS: BP 156/76; PULSE 70; RESP 18
[2019-04-20 20:10] VITALS: BP 150/78; PULSE 70; RESP 18
[2019-04-21 00:08] VITALS: BP 156/79; PULSE 63; RESP 18
[2019-04-21 04:10] VITALS: BP 149/72; PULSE 64; RESP 18
[2019-04-21] MEDS: FERROUS SULFATE (EC) 325 MG TAB PO SCH ×3 (05:59→21:57)
[2019-04-21] MEDS: LEVOTHYROXINE 50 MCG TAB GTB SCH (05:59)
[2019-04-21] MEDS: IBUPROFEN 800 MG TAB PO SCH ×3 (05:59→21:57)
[2019-04-21] MEDS: HYDROCODONE/APAP (5/325) TAB PO SCH ×3 (06:00→21:57)
[2019-04-21] MEDS: LABETALOL 200 MG TAB PO SCH ×2 (06:00→20:49)
[2019-04-21] MEDS: ACCU-CHEK XX SCH ×5 (06:00→20:53)
[2019-04-21 08:00] VITALS: BP 142/65; PULSE 62; RESP 18
[2019-04-21] MEDS: SENNA/DOCUSATE NA (8.6MG/50MG) TAB PO SCH ×2 (09:04→20:48)
[2019-04-21] MEDS: CELECOXIB 200 MG CAP PO SCH ×2 (09:04→20:48)
[2019-04-21] MEDS: metFORMIN (XR) 500 MG TAB PO SCH ×2 (09:04→20:52)
--- NOTE | 2019-04-21 10:17 | DS ---
Date/Time of Note Date/Time of Note DATE: 04/21/19 TIME: 10:16 Obstetrical Discharge Record Final Diagnosis Final Diagnosis: Term delivered Other Final Diagnosis 38 year-old G 5 para 4-1-0-4 with preeclampsia, pre-gestational diabetes, hypothyroidism s/p repeat delivery at 36 wks and 6 days.POD#4. - AF, VSS - Contraception methods with R/B/A/FR discussed - Continue care - Discharge home - Rx and instruction given 2. Preeclampsia: She currently has no symptom of severe features. She is currently on labetalol 200 mg every 8 hours, blood pressures still are not well controlled. Procardia 30 mg XL started and continue labetalol 200 mg twice daily with follow-up in 3 days in clinic 3. Pre-gestational diabetes: She was on metformin 1000 mg twice daily and insulin during . Currently is on metformin 500 mg twice daily. Continue checking blood glucose before meals and nightly 4. Hypothyroidism: She is on levothyroxine, continue same dose of levothyroxine. Check TSH and free T4 in 4 weeks after delivery Section Section: Repeat Condition on Discharge Physical Assessment Last Vitals: Vital Signs Date Temp Pulse Resp B/P (MAP) Pulse Ox O2 O2 Flow FiO2 Time Delivery Rate 04/21/19 98.2 64 18 149/72 Room Air 04:10 (97) 04/18/19 96 20:15 Voiding: Yes Bowel Movement: Yes Breast: Soft, non-tender Fundus: Firm Calf Tenderness: No Patient Condition: Stable LAUREN RANDOLPH Apr 21, 2019 10:17
[2019-04-21] MEDS: NIFEdipine (XL) 30 MG TAB PO SCH (11:20)
[2019-04-21 12:00] VITALS: BP 154/75; PULSE 63; RESP 18
[2019-04-21 16:00] VITALS: BP 124/64; PULSE 78; RESP 18
[2019-04-21 20:45] VITALS: BP 129/73; PULSE 80; RESP 18
[2019-04-22 03:20] VITALS: BP 134/65; PULSE 75; RESP 19
[2019-04-22] MEDS: FERROUS SULFATE (EC) 325 MG TAB PO SCH ×2 (05:40→13:45)
[2019-04-22] MEDS: HYDROCODONE/APAP (5/325) TAB PO SCH ×2 (05:40→13:45)
[2019-04-22] MEDS: IBUPROFEN 800 MG TAB PO SCH ×2 (05:40→13:44)
[2019-04-22] MEDS: LEVOTHYROXINE 50 MCG TAB GTB SCH (05:40)
[2019-04-22] MEDS: ACCU-CHEK XX SCH ×4 (07:35→17:35)
[2019-04-22 08:00] VITALS: BP 133/69; PULSE 71; RESP 18
[2019-04-22] MEDS: CELECOXIB 200 MG CAP PO SCH (08:21)
[2019-04-22] MEDS: LABETALOL 200 MG TAB PO SCH (08:22)
[2019-04-22] MEDS: NIFEdipine (XL) 30 MG TAB PO SCH (08:22)
[2019-04-22] MEDS: SENNA/DOCUSATE NA (8.6MG/50MG) TAB PO SCH (08:22)
[2019-04-22] MEDS: metFORMIN (XR) 500 MG TAB PO SCH (08:25)
--- NOTE | 2019-04-22 16:18 | PN ---
Date/Time of Note Date/Time of Note DATE: 04/22/19 TIME: 16:15 OB Subjective Subjective Subjective Subjective: Tolerating diet. Voiding. Ambulating. Vaginal bleeding within normal limits. Objective: Vital signs within normal limits. General: No apparent distress. Breast: Normal. Fundus 2 fingerbreadths below the umbilicus. Extremities nontender to palpation. Incision: Clean/Dry/intact Laboratory Tests Test 04/22/19 15:47 Hematocrit 26.8 % Hemoglobin 8.6 g/dl Platelet Count 240 10^3/UL White Blood Count 5.9 10^3/ul Assessment/plan: 1. [id number] G5, P4 status post repeat section. Hospital course uncomplicated. 2. PreeclampsiaProcardia and labetalol 3. Pre-gestational diabetes-metformin. Endocrine consult requested. Patient will likely need to resume insulin. BS fastings and pp elevated. Refer to labs. 4. Hypothyroidismlevothyroxine. 5. Acute blood loss anemia-ferrous sulfate. Position: Discharge pending endocrine consult Disposition: Follow-up in 1 week NIKI THOMAS MD Apr 22, 2019 16:18
[2019-04-22 16:58] VITALS: BP 135/75; PULSE 76; RESP 18
--- NOTE | 2019-04-22 17:01 | CONS ---
Assessment/Plan Assessment/Plan Problems: (1) Diabetes mellitus type 2 in obese Status: Chronic Comment: At this time she is been adequately maintained on oral agent therapy as an outpatient. I believe we can go ahead and use metformin in the setting and if need be added in NPH insulin. The main real legitimate issue here is for outpatient follow-up. Given that she has regular [employer] she can be seen in 1 of the clinics at work so that that has endocrinology on staff. This would be an agency such as [facility], [facility], [facility], [facility] or others. Please note I have not tried to direct her into any specific group. I have offered to see her in the office one time in follow-up. (2) Hypothyroidism Status: Chronic Comment: Continue levothyroxine replacement therapy. Qualifiers: Qualified Codes: E03.9 - Hypothyroidism, unspecified CC: ANGELIKA JACKSON MD; LAUREN RANDOLPH; NIKI THOMAS MD; ALONDRA DIAZ MD ; Consultation Date/Type/Reason Admit Date/Time Apr 16, 2019 at 21:25 Date of Consultation: Apr 22, 2019 Type of Consult Endocrine Reason for Consultation Diabetes mellitus type 2 predating this ; status post ; hy pothyroidism Requesting Provider: NIKI THOMAS MD Date/Time of Note DATE: 04/22/19 TIME: 16:56 Hx of Present Illness Charming 38-year-old [place] female who is status post her second C- section. She was delivered early due to preeclampsia according to the chart. At this time they are preparing to discharge her but want to get an endocrinology consultation accomplished prior to her heading out the door. Please note she has regular [employer], but has not had a regular physician and has been intermittently seen by various doctors in the clinics at [facility]. Prior to the she was on metformin as single agent therapy during the she was on metformin in combination with insulin. Constitutional: no complaints Respiratory: no complaints Cardiovascular: no complaints Gastrointestinal: no complaints Genitourinary: no complaints Endocrine: no complaints Past Medical History Medical History: diabetes (Type II), hypothyroid, other (G5, P4 Ab1) Home Meds Reported Medications Levothyroxine Sodium* (Levothyroxine Sodium*) 50 Mcg Tablet, 50 MCG PO BEFORE BREAKFAST, #30 TAB 04/02/19 Insulin Human Regular (Novolin-R U-100) 100 Unit/Ml Soln, 10 UNITS SC AC BREAKFAST, EA 04/02/19 Insulin Human Regular (Novolin-R U-100) 100 Unit/Ml Soln, 6 UNITS SC AC DINNER, EA 04/02/19 NPH, Human Insulin Isophane (Humulin N Kwikpen) 100 Unit/1 Ml Insuln.pen, 14 UNIT SQ QHS, EA 04/02/19 NPH, Human Insulin Isophane (Humulin N Kwikpen) 100 Unit/1 Ml Insuln.pen, 15 UNIT SQ AC BREAKFAST, EA 04/02/19 Medications Current Medications Methylergonovine Maleate (Methergine) 0.2 mg Q6H PRN PO .VAGINAL BLEEDING; Start 04/18/19 at 01:00 Simethicone (Mylicon) 160 mg Q8H PRN PO .GAS; Start 04/18/19 at 01:00 Senna/Docusate Sodium (Senokot-S) 1 tab BID PO Last administered on 04/22/19at 08:22; Admin Dose 1 TAB; Start 04/18/19 at 09:00 Lanolin (Lanolin Hpa) 1 applic BEDSIDE MEDICATION PRN TOP .NIPPLES; Start 04/18/19 at 01:00 Oxytocin/Lactated Ringer's 500 ml @ 0 mls/hr ONCE PRN IV .VAGINAL BLEEDING; Start 04/18/19 at 01:00 Carboprost Tromethamine (Hemabate) 250 mcg ONCE PRN IM .VAGINAL BLEEDING; Start 04/18/19 at 01:00 Misoprostol (Cytotec) 1,000 mcg ONCE PRN AL .VAGINAL BLEEDING; Start 04/18/19 at 01:00 Ibuprofen (Motrin) 800 mg Q8 PO Last administered on 04/22/19at 13:44; Admin Dose 800 MG; Start 04/18/19 at 22:00 Acetaminophen/ Hydrocodone Bitart ([place] (5/325)) 1 tab Q4H PRN NGT PAIN LEVEL 7-10; Start 04/18/19 at 19:45 Acetaminophen/ Hydrocodone Bitart ([place] (5/325)) 1 tab Q8 PO Last administered on 04/22/19at 13:45; Admin Dose 1 TAB; Start 04/18/19 at 22:00 Celecoxib (Celebrex) 200 mg BID PO Last administered on 04/22/19at 08:21; Admin Dose 200 MG; Start 04/18/19 at 21:00 Magnesium Hydroxide (Milk Of Mag) 30 ml BID PRN PO CONSTIPATION; Start 04/18/19 at 01:00 Levothyroxine Sodium (Synthroid) 50 mcg DAILY@06 GTB Last administered on 04/22/19at 05:40; Admin Dose 50 MCG; Start 04/18/19 at 06:00 Metformin HCl (Glucophage Xr) 500 mg BID PO Last administered on 04/22/19at 0 8:25; Admin Dose 500 MG; Start 04/18/19 at 09:00 Diagnostic Test (Pha) (Accu-Chek) 1 ea FASTING BLOOD SUGAR XX Last administered on 04/20/19at 08:34; Admin Dose 1 EA; Start 04/19/19 at 06:00 Diagnostic Test (Pha) (Accu-Chek) 1 ea AC MEALS AND BEDTIME XX Last administered on 04/20/19at 18:10; Admin Dose 1 EA; Start 04/20/19 at 17:35 Labetalol HCl (Normodyne) 200 mg BID PO Last administered on 04/22/19at 08:22; Admin Dose 200 MG; Start 04/21/19 at 21:00 Nifedipine (Procardia Xl) 30 mg DAILY PO Last administered on 04/22/19at 08:22; Admin Dose 30 MG; Start 04/21/19 at 11:00 Ferrous Sulfate (Ferrous Sulfate (Ec)) 325 mg BID PO ; Start 04/22/19 at 21:00 Allergies: Coded Allergies: No Known Allergy (Unverified , 04/17/19) Past Surgical History Past Surgical Hx: other (Status post x2) Family History Significant Family History: diabetes Social History Or in [place] and raised there. She is low the [facility] for 20 years. She is lives with her spouse and 4 children Alcohol Use: none Smoking Status: Never smoker Drug Use: none Exam/Review of Systems Exam Vitals Vital Signs Date Temp Pulse Resp B/P (MAP) Pulse Ox O2 O2 Flow FiO2 Time Delivery Rate 04/22/19 Room Air 12:15 04/22/19 98.2 71 18 133/69 08:00 (90) 04/18/19 96 20:15 Constitutional: alert, oriented Neck: supple, non-tender Respiratory: clear to auscultation, normal air movement Cardiovascular: regular rate and rhythm, nl pulses Gastrointestinal: soft, nl liver, spleen, non-tender Results Result Diagram: 04/22/19 1547 Results 24hrs Laboratory Tests Test 04/21/19 17:48 04/21/19 20:51 04/22/19 08:13 04/22/19 12:08 Bedside Glucose 168 169 136 129 Test 04/22/19 15:47 White Blood Count 5.9 # Red Blood Count 3.10 L Hemoglobin 8.6 L Hematocrit 26.8 L Mean Corpuscular 86.5 Volume Mean Corpuscular 27.7 L Hemoglobin Mean Corpuscular 32.1 Hemoglobin Concent Red Cell Distribution 15.2 H Width Platelet Count 240 Mean Platelet Volume 10.5 H Immature Granulocytes 2.600 H % Neutrophils % 62.7 Lymphocytes % 24.6 Monocytes % 6.0 Eosinophils % 3.4 Basophils % 0.7 Nucleated Red Blood 0.7 H Cells % Immature Granulocytes 0.150 H # Neutrophils # 3.7 Lymphocytes # 1.4 Monocytes # 0.4 Eosinophils # 0.2 Basophils # 0.0 Nucleated Red Blood 0.0 Cells # Medications Medication Current Medications Methylergonovine Maleate (Methergine) 0.2 mg Q6H PRN PO .VAGINAL BLEEDING; Start 04/18/19 at 01:00 Simethicone (Mylicon) 160 mg Q8H PRN PO .GAS; Start 04/18/19 at 01:00 Senna/Docusate Sodium (Senokot-S) 1 tab BID PO Last administered on 04/22/19at 08:22; Admin Dose 1 TAB; Start 04/18/19 at 09:00 Lanolin (Lanolin Hpa) 1 applic BEDSIDE MEDICATION PRN TOP .NIPPLES; Start 04/18/19 at 01:00 Oxytocin/Lactated Ringer's 500 ml @ 0 mls/hr ONCE PRN IV .VAGINAL BLEEDING; Start 04/18/19 at 01:00 Carboprost Tromethamine (Hemabate) 250 mcg ONCE PRN IM .VAGINAL BLEEDING; Start 04/18/19 at 01:00 Misoprostol (Cytotec) 1,000 mcg ONCE PRN AL .VAGINAL BLEEDING; Start 04/18/19 at 01:00 Ibuprofen (Motrin) 800 mg Q8 PO Last administered on 04/22/19 13:44; Admin Dose 800 MG; Start 04/18/19 at 22:00 Acetaminophen/ Hydrocodone Bitart ([place] (5/325)) 1 tab Q4H PRN NGT PAIN LEVEL 7-10; Start 04/18/19 at 19:45 Acetaminophen/ Hydrocodone Bitart ([place] (5/325)) 1 tab Q8 PO Last administered on 04/22/19 13:45; Admin Dose 1 TAB; Start 04/18/19 at 22:00 Celecoxib (Celebrex) 200 mg BID PO Last administered on 04/22/19 08:21; Admin Dose 200 MG; Start 04/18/19 at 21:00 Magnesium Hydroxide (Milk Of Mag) 30 ml BID PRN PO CONSTIPATION; Start 04/18/19 at 01:00 Levothyroxine Sodium (Synthroid) 50 mcg DAILY@06 GTB Last administered on 05:40; Admin Dose 50 MCG; Start 04/18/19 at 06:00 Metformin HCl (Glucophage Xr) 500 mg BID PO Last administered on 04/22/19 08:25; Admin Dose 500 MG; Start 04/18/19 at 09:00 Diagnostic Test (Pha) (Accu-Chek) 1 ea FASTING BLOOD SUGAR XX Last administered on 04/20/19 08:34; Admin Dose 1 EA; Start 04/19/19 at 06:00 Diagnostic Test (Pha) (Accu-Chek) 1 ea AC MEALS AND BEDTIME XX Last adminis tered on 04/20/19 18:10; Admin Dose 1 EA; Start 04/20/19 at 17:35 Labetalol HCl (Normodyne) 200 mg BID PO Last administered on 04/22/19 08:22; Admin Dose 200 MG; Start 04/21/19 at 21:00 Nifedipine (Procardia Xl) 30 mg DAILY PO Last administered on 04/22/19 08:22; Admin Dose 30 MG; Start 04/21/19 at 11:00 Ferrous Sulfate (Ferrous Sulfate (Ec)) 325 mg BID PO ; Start 04/22/19 at 21:00 JALEEL BLACK MD Apr 22, 2019 17:01
[2019-04-22] MEDS ORDERED: metFORMIN 850 MG TAB PO SCH (18:05)
[2019-04-22] MEDS ORDERED: NIFE30TA2 PO (18:27)
[2019-04-22] MEDS ORDERED: IBUP800T48 PO (18:27)
[2019-04-22] MEDS ORDERED: LABE200T25 PO (18:27)
[2019-04-22] MEDS ORDERED: FER325 PO (18:27)
[2019-04-22] MEDS ORDERED: SENOKOTS PO (18:27)
[2019-04-22] MEDS ORDERED: metFORMIN (XR) 500 MG TAB PO SCH (21:00)
[2019-04-22] MEDS ORDERED: FERROUS SULFATE (EC) 325 MG TAB PO SCH (21:00)
--- NOTE | 2019-04-23 22:34 | DELSUM ---
Delivery Summary A-C Datetime Report Generated by CPN: 04/23/2019 22:34 DELIVERY PERSONNEL Slip Bridge Operator: Diamond, Bang MATERNAL INFORMATION Delivery Anesthesia: Spinal Medications in Delivery: SEE ANESTHESIA RECORD Delivery QBL (ml): 800 Placenta Cultured: No Maternal Complications: None LABOR SUMMARY EDC: 05/09/2019 00:00 No. Babies in Womb: 1 Attempted: No Labor Anesthesia: None LABOR INFORMATION Reason for Induction: Not Applicable Group B Beta Strep: Not Done Antibiotics # of Doses: ANCEF 2G X1 Antibiotics Time of Last Dose: 04/17/2019 19:46 Steroids Given: None Reason Steroids Not Administered: Not Applicable MEMBRANES Membranes Rupture Method: Artificial Rupture of Membranes: 04/17/2019 20:07 Length of Rupture (hr): 0.00 Amniotic Fluid Color: Clear Amniotic Fluid Amount: Copious Amniotic Fluid Odor: None STAGES OF LABOR Stage 3 hr: 0 Stage 3 min: 2 CSECTION DELIVERY Primary Indication: Other Other Primary Indication: PREECLAMPSIA Secondary Indication: Repeat Elective CSection Urgency: Non Elective CSection Incidence: Repeat Labor: No Labor Elective: Elective CSection Incision: Lower Uterine Transverse BABY A INFORMATION Infant Delivery Date/Time: 04/17/2019 20:07 Method of Delivery: Born in Route : No : N/A Forceps: N/A Vacuum Extraction: N/A Shoulder Dystocia : N/A SHOULDER DYSTOCIA BABY A Infant Delivery Date/Time: 04/17/2019 20:07 PRESENTATION/POSITION BABY A Presentation: Cephalic Cephalic Presentation: Vertex Vertex Position: Left Occipital Anterior Breech Presentation: N/A PLACENTA INFORMATION BABY A Placenta Delivery Time : 04/17/2019 20:09 Placenta Method of Delivery: Manual Removal Placenta Status: Delivered SCORES BABY A Heart Rate 1 min: >100 bpm Resp Effort 1 min: Good Cry Reflex Irritability 1 min: Cough/Sneeze/Pulls Away Muscle Tone 1 min: Active Motion Color 1 min: Blue/Pale Resuscitation Effort 1 min: Tactile Stimulation; Oxygen; PPV/NCPAP SCORE 1 MIN: 8 Heart Rate 5 min: >100 bpm Resp Effort 5 min: Good Cry Reflex Irritability 5 min: Cough/Sneeze/Pulls Away Muscle Tone 5 min: Active Motion Color 5 min: Body [place], Extremit Blue Resuscitation Effort 5 min: N/A SCORE 5 MIN: 9 INFORMATION BABY A Gestational Age at Delivery: 36.6 Gestational Status: Late - 34- 36.6 Weeks Infant Outcome : Liveborn, with signs of life Infant Condition : Stable Infant Sex: Female IDENTIFICATION/MEDS BABY A ID Band Number: [id number] ID Band Location: Right Leg; Left Arm Sensor Applied: Yes Sensor Number: [id number] Sensor Location : Cord Clamp Vitamin K Given : Not Given Erythromycin Given: Not Given WEIGHT/LENGTH BABY A Infant Birthweight (gm): 3975 Weight (lb): 8 Infant Weight (oz): 12 Length (in): 19.25 Infant Length (cm): 48.90 CORD INFORMATION BABY A No. Cord Vessels: 3 Nuchal Cord : N/A Cord Blood Taken: Yes Banking/Donate Info: N/A Suction: Mouth; Nose ASSESSMENT BABY A Complications: None Physical Findings at Delivery: Within Normal Limits Respirations: Appears Normal Production Cell Leader/ALS Called : Yes Care By: DAHIANA ROOT Transferred To: Remains with Mother
== END 2019-04-22 20:10 | disposition home or self-care (01) | DRG 783 ==
LOC: OBT 16:04 → L-D 16:05 → OBT 21:25 → PP1 21:25 → L-D 04-17 16:00 → PP1 04-18 00:25
PROVIDERS: ADMIT Obstetrics & Gynecology; ATTEND Obstetrics & Gynecology
PROC: 0UB50ZZ Excision of Right Fallopian Tube, Open Approach (ICD-10-PCS; 2019-04-17)
PROC: 10D00Z1 Extraction of Products of Conception, Low, Open Approach (ICD-10-PCS; principal; 2019-04-17 20:00)
DX: O14.13 Severe pre-eclampsia, third trimester (principal); O24.32 Unspecified pre-existing diabetes mellitus in childbirth; D62 Acute posthemorrhagic anemia; O99.284 Endocrine, nutritional and metabolic diseases complicating childbirth; E03.9 Hypothyroidism, unspecified; E11.9 Type 2 diabetes mellitus without complications; Z3A.36 36 weeks gestation of pregnancy; Z37.0 Single live birth; O34.211 Maternal care for low transverse scar from previous cesarean delivery; N83.8 Other noninflammatory disorders of ovary, fallopian tube and broad ligament; Z79.4 Long term (current) use of insulin
CPT/HCPCS: 76815; 76818; 80053; 81001; 82962; 83036; 84439; 84443; 84560; 85025; 85610; 85730; 86592; 86850; 86900; 86901; 87340; 99464; G0463; J0690; J1100; J1200; J1815; J1885; J2274; J2370; J2405; J2590; J2765; J7120; J7121